=== PATIENT | male | born 1955 | race Caucasian/White ===

== ENCOUNTER 2017-10-26 13:42 | Outpatient (CLI) | payer BC, SELFPAY ==
--- NOTE | 2017-10-26 16:24 | HP ---
DATE OF SERVICE: 10/26/2017 HISTORY OF PRESENT ILLNESS: Mr. Abbe Miguel is a very pleasant 62-year-old gentleman who presents to the Wound Center for evaluation of an ulceration of the right lateral lower leg. The patient stat es that the ulceration of his right lateral lower leg has been present since July of this year. T he patient states that the wound began approximately 3 months ago when the patient hit his right late ral lower leg against the wooden corner of his bed. The patient states that he treated the resulting wound by cleansing followed by the application of Neosporin and Band-Aid. The patient states that d espite the preceding dressing changes, the wound became associated with an infectious process for [facility] he was seen by Dr. Sarkar. Mr. Miguel states that he was treated with 2 rounds of antibiotics. The patient states that he was referred to wound care in [place] where he received dressing changes 2 times per week. The patient states that his wound has been debrided after being seen by Wound Care in [place]. The patient states that for the past 2 weeks, he has been receiving dressing changes of Medihoney. The patient states that 2 weeks ago, he was referred to the Wound Center at [facility] for further evaluation and treatment. PAST MEDICAL HISTORY: 1. Diabetes mellitus. 2. Chronic obstructive pulmonary disease. 3. Hypothyroidism. 4. Gastroesophageal reflux disease. PAST SURGICAL HISTORY: 1. 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 2. Back surgery. 3. Multiple surgeries of the left foot by Dr. Mao Pierce. 4. Herniorrhaphy. 5. Bilateral cataract surgery. MEDICATIONS: 1. Advair. 2. Simvastatin. 3. Ezetimibe. 4. Protonix. 5. Losartan. 6. HCTZ. 7. Levothyroxine. 8. Singulair. 9. Humalog. ALLERGIES: No known diagnosed allergies. SOCIAL HISTORY: Significant for tobacco use for approximately 30 years. The patient states that ove r this period of time, he smoked up to 2 packs of cigarettes per day. The patient states that he sto pped smoking 15 years ago. The patient denies any history of ETOH use. FAMILY HISTORY: Significant for diabetes mellitus. The patient's father was diagnosed with diabetes mellitus. Family history is negative for coronary artery disease. PHYSICAL EXAMINATION: VITAL SIGNS: Temperature 98.2, pulse 97, respirations 19, blood pressure 155/74. Accu-Chek 101. GENERAL: A 62-year-old gentleman lying on table in examination room in no acute distress. HEENT: Normocephalic and atraumatic. NECK: No nuchal rigidity. CHEST: Clear to auscultation. CARDIAC: Regular rate and rhythm. ABDOMEN: Soft. EXTREMITIES: An ulceration of the right lateral lower leg is present which measures approximately 1. 0 x 1.3 cm. A small amount of granulation tissue is present within the wound margins. Necrotic and nonviable tissue present within the wound margins was debrided with an excisional full-thickness debr idement with the use of a curette. No purulent drainage is associated with the wound. No cellulitis of the right lower leg is appreciated. No maceration of the skin of the periwound is noted. A dors durga pedis pulse is palpable on the right. Edema of the right foot and lower leg is present on exam today. Varicosities are also present over the dorsum of the right foot. NEUROLOGIC: Grossly nonfocal. ASSESSMENT AND PLAN: 1. Varicose veins of right lower extremity with ulcer. Promogran, Silverlon, Webril, and the 3M Cob an 2-layer compression system will be applied to the ulceration today. No antibiotics will be prescr ibed based upon the appearance of the wound. Orders will be transmitted to physical therapy at [facility] for a dressing change of Promogran, Silverlon, Webril, and the 3M Coban 2 layer compression system in 1 week. I will see Mr. Miguel again in two weeks. The patient understands a nd is in agreement with the preceding treatment plan. 2. Diabetes mellitus. The patient's Accu-Chek in clinic today is 101. The patient has been told th at for optimal wound healing, his blood glucoses should remain below 150. 3. Chronic obstructive pulmonary disease. 4. Hypothyroidism. 5. Gastroesophageal reflux disease.
[2017-10-26] MEDS ORDERED: Sodium Chloride 0.9% 15 ML NEB ONE (18:54)
== END 2017-10-26 13:43 | disposition home or self-care (01) ==
LOC: WCC 13:42
PROVIDERS: ATTEND Family Medicine
DX: S81.801D Unspecified open wound, right lower leg, subsequent encounter (principal)
CPT/HCPCS: 11042; 99202; A4218; G0463

== ENCOUNTER 2017-11-09 09:38 | Outpatient (CLI) | payer BC ==
[~2017-11-09 09:38] MED LIST: Sodium Chloride 0.9% 15 ML NEB ONE
--- NOTE | 2017-11-09 10:50 | PRG ---
DATE OF SERVICE: 11/09/2017 HISTORY: Mr. Abbe Miguel is a very pleasant 62-year-old gentleman who presents to the Wound Center for evaluation of an ulceration of the right lateral lower leg. The patient previously stated that the ulceration of his right lateral lower leg has been present since July of this year. The patient stated that the wound began approximately 3 months ago when the patient hit his right latera l lower leg against the wooden corner of his bed. The patient stated that he treated the resulting w ound by cleansing followed by the application of Neosporin and a Band-Aid. The patient stated that d espite the preceding dressing changes, the wound became associated with an infectious process for whi ch he was seen by Dr. Sarkar. The patient stated that he was treated with 2 rounds of antibiotics. He stated that he was referred to wound care in [place] where he received dressing changes 2 times p er week. The patient stated that his wound had been debrided after being seen by Wound Care in [facility]. The patient stated that for 2 weeks prior to being seen in the Wound Center, he had been receivi ng dressing changes of Medihoney. When dressing changes of Medihoney were initiated, the patient was referred to the Wound Center for further evaluation and treatment. After being seen in the Wound Ce nter, Promogran, Silverlon, Webril, and the 3m Coban 2 layer compression system were applied to the u lceration of the right lateral lower leg. PHYSICAL EXAMINATION: VITAL SIGNS: Temperature 97.8, pulse 86, respirations 19, blood pressure 154/73. Accu-Chek 115. EXTREMITIES: An ulceration of the right lateral lower leg is present which measures approximately 1. 0 x 0.6 cm. Granulation tissue is present within the wound margins. Necrotic and nonviable tissue p resent within the wound margins was debrided with an excisional full-thickness debridement with the u se of scissors and a curette. No purulent drainage is associated with the wound. No cellulitis of t he right lower leg is appreciated. No maceration of the skin of the periwound is noted. A dorsalis pedis pulse is palpable on the right. No significant edema of the right foot or lower leg is present on exam today. Varicosities are present over the dorsum of the right foot. ASSESSMENT AND PLAN: 1. Varicose veins of right lower extremity with ulcer. Promogran, Silverlon, Webril, and the 3m Cob an 2-layer compression system will be applied to the ulceration today. Orders will be transmitted to [facility] in [place] for a dressing change of Promogran, Silverlon, Webril, and the 3m Coban 2 layer compression system in 1 week. I will see Mr. Miguel again in two weeks. 2. Diabetes mellitus. The patient's Accu-Chek in clinic today is 115. The patient has been reminde d that for optimal wound healing, his blood glucoses should remain below 150. 3. Chronic obstructive pulmonary disease. 4. Hypothyroidism. 5. Gastroesophageal reflux disease.
== END 2017-11-09 09:39 | disposition home or self-care (01) ==
LOC: WCC 09:38
PROVIDERS: ATTEND Family Medicine
DX: I83.018 Varicose veins of right lower extremity with ulcer other part of lower leg (principal); L97.819 Non-pressure chronic ulcer of other part of right lower leg with unspecified severity; E11.9 Type 2 diabetes mellitus without complications; J44.9 Chronic obstructive pulmonary disease, unspecified; E03.9 Hypothyroidism, unspecified; K21.9 Gastro-esophageal reflux disease without esophagitis
CPT/HCPCS: 11042; A4218

== ENCOUNTER 2017-11-23 09:55 | Outpatient (CLI) | payer BC ==
--- NOTE | 2017-11-23 11:02 | PRG ---
DATE OF SERVICE: 11/23/2017 HISTORY: Mr. Abbe Miguel is a very pleasant 62-year-old gentleman who presents to the Wound Center for evaluation of an ulceration of the right lateral lower leg. The patient previously stated that the ulceration of his right lateral lower leg had been present since July of this year. The patient stated that the wound began approximately 3 months prior to the patient's initial presentati on to the Wound Center when the patient hit his right lateral lower leg against a wooden corner of ct s bed. The patient stated that he treated the resulting wound by cleansing followed by the applicati on of Neosporin and a Band-Aid. The patient stated that despite the preceding dressing changes the w ound became associated with an infectious process for which he was seen by Dr. Sarkar. The patient stated that he was treated with 2 rounds of antibiotics. He stated that he was referred to wound car e in [place] where he received dressing changes 2 times per week. The patient stated that his wound had been debrided after being seen by Wound Care in [place]. The patient stated that for 2 weeks pavan or to being seen in the Wound Center, he had been receiving dressing changes of Medihoney. When dres sing changes of Medihoney were initiated the patient was referred to the Wound Center for further raul luation and treatment. After being seen in the Wound Center, Promogran, Silverlon, Webril, and the 3 M Coban 2 layer compression system were applied to the ulceration of the right lateral lower leg. PHYSICAL EXAMINATION: VITAL SIGNS: Temperature 98.0, pulse 86, respirations 18, blood pressure 147/67. Accu-Chek 65. EXTREMITIES: The ulceration over the right lateral lower leg has almost healed completely. No purul ent drainage is associated with the wound. No cellulitis of the right lower leg is appreciated. No maceration of the skin of the periwound is noted. A dorsalis pedis pulse is palpable on the right. Mild to moderate edema of the right foot and lower leg is present on exam today. Varicosities are pr esent over the dorsum of the right foot. ASSESSMENT AND PLAN: 1. Varicose veins of right lower extremity with ulcer. The patient has received dressing changes of the 3M Coban 2 layer compression system on a weekly basis here in the Wound Center, and at [facility] in [place]. The wound has almost healed completely, and dressing changes of [facility] are to be performed after cleansing and irrigation until the wound has healed completely. Mr. Miguel will be discharged from clinic today with followup on a p.r.n. basis. The patient states he has plans to be seen in consultation for evaluation for venous ablation. 2. Diabetes mellitus. The patient's Accu-Chek in clinic today is 65. The patient has been reminded that for optimal wound healing, his blood glucoses should remain below 150. 3. Chronic obstructive pulmonary disease. 4. Hypothyroidism. 5. Gastroesophageal reflux disease.
== END 2017-11-23 09:56 | disposition home or self-care (01) ==
LOC: WCC 09:55
PROVIDERS: ATTEND Family Medicine
DX: I83.018 Varicose veins of right lower extremity with ulcer other part of lower leg (principal); L97.919 Non-pressure chronic ulcer of unspecified part of right lower leg with unspecified severity; E11.622 Type 2 diabetes mellitus with other skin ulcer; J44.9 Chronic obstructive pulmonary disease, unspecified; E03.9 Hypothyroidism, unspecified; K21.9 Gastro-esophageal reflux disease without esophagitis
CPT/HCPCS: 97602

== ENCOUNTER 2019-04-13 10:23 | Outpatient (CLI) | payer MEDICARE, BC | END 2019-04-13 10:24 | disposition home or self-care (01) | LOC: CTENTCT 10:23 | PROVIDERS: ATTEND Specialist | DX: J33.9 Nasal polyp, unspecified (principal) | CPT/HCPCS: 70486 ==

== ENCOUNTER 2019-05-05 10:36 | Day surgery (SDC) | payer MEDICARE, BC ==
[2019-05-04 16:19] VITALS: BMI 33.9
[2019-05-05] MEDS ORDERED: Oxymetazoline HCl 0.05% ( 15 ML ) ONE ×2 (10:56→12:28)
[2019-05-05 11:05] LABS: Hemoglobin 14.6 g/dL (14.0-18.0)
[2019-05-05 11:27] LABS: Anion Gap 10 mmol/L (10-20); BUN (Urea Nitrogen) 15 mg/dL (8.4-25.7); Calc. Creatinine Clearance 95 mL/min (70-130); Calcium 9.3 mg/dL (7.8-10.44); Carbon Dioxide 29 mmol/L (23-31); Chloride 99 mmol/L (98-107); Estimated GFR-MDRD 59; Glucose 235 mg/dL (80-115); Potassium 4.4 mmol/L (3.5-5.1); Sodium 134 mmol/L (136-145)
[2019-05-05] MEDS ORDERED: Hydrocortisone Sod Succ/PF 100 mg/2 ml Vial ONE (12:03)
[2019-05-05] MEDS ORDERED: Lidocaine 1% w/Epinephrine 1:100K 20 ML VIAL ONE (12:28)
[2019-05-05] MEDS ORDERED: EPINEPHrine 1 MG/ML AMP ONE (12:28)
[2019-05-05] MEDS ORDERED: Ondansetron PF 4 MG/2 ML Vial ONE (12:29)
[2019-05-05] MEDS ORDERED: PROPOFOL 200 MG/20 ML VIAL ONE (12:29)
[2019-05-05] MEDS ORDERED: Lidocaine 1% PF 5 ML VIAL ONE (12:29)
[2019-05-05] MEDS ORDERED: Fentanyl 100 MCG/2 ML VIAL ONE (12:59)
[2019-05-05] MEDS ORDERED: HYDROcodone/Acetaminophen 5/325 mg Tablet ONE (16:21)
--- NOTE | 2019-05-06 11:29 | OP ---
DATE OF PROCEDURE: 05/05/2019 PREOPERATIVE DIAGNOSES: Nasal polyposis, hypertrophic inferior turbinates, deviated septum, chronic recurrent sinusitis. POSTOPERATIVE DIAGNOSES: Nasal polyposis, hypertrophic inferior turbinates, deviated septum, chronic recurrent sinusitis. PROCEDURES PERFORMED: 1. Septoplasty. 2. Bilateral nasal endoscopy with submucosal resection of inferior turbinates. 3. Bilateral nasal endoscopy with total ethmoidectomy. 4. Bilateral nasal endoscopy with maxillary antrostomy with removal of tissue. 5. Bilateral nasal endoscopy with frontal sinusotomy. 6. Bilateral nasal endoscopy with sphenoidotomy. 7. Bilateral nasal endoscopy with excision of nasal polyps. DESCRIPTION OF PROCEDURE: SEPTOPLASTY: After local anesthesia was infiltrated into the submucoperichondrial plane, a standard [place] incision was made with a #15 blade down to the level of the septal cartilage. The caudal elevator was used to elevate the mucoperichondrium from the underlying cartilage. We then proceeded beyond the bony cartilaginous junction and elevated the bony periosteum as well. Great attention was paid to the spur to prevent rent formation in the septal flap. A transcartilaginous incision was then made, while preserving an adequate dorsal and caudal cartilaginous strut for tip support. The deformed cartilage was removed and disarticulated from the bony cartilaginous junction and maxillary crest. This was placed in saline and would later be crushed and returned to the mucoperichondrial envelope. We then elevated the contralateral periosteum from the bony cartilaginous region and removed the deformed portions of the bone and bony spurs. The cartilage was then crushed and placed back into the mucoperichondrial envelope and the mucosa was re-approximated with a quilting stitch composed of rapidly absorbent gut suture. The [place] incision was also closed with interrupted gut suture. At the completion of the case, Sales splints were placed and suture secured to the caudal septum. BILATERAL NASAL ENDOSCOPY WITH SUBMUCOSAL RESECTION OF INFERIOR TURBINATES: After consent was obtained, the patient was identified, brought to the operating room, and placed on the operating room table in the supine position. Consent was obtained, notifying the patient of the possibility of additional infections, bleeding, brain injury, and eye/orbital injury. The patient was placed on the operating room table, and general endotracheal anesthesia and intravenous access was obtained. The patient was then positioned, prepped and draped for endoscopic sinus surgery. Nasal preparation included trimming nasal vestibular hairs and spraying in topical Afrin. We then placed Afrin topical solution on nasal pledgets and strategically located them intranasally. The perinasal mucosa was injected with 1% lidocaine with 1:100,000 epinephrine in the submucoperichondrial plane of the septum, lateral nasal wall, and anterior to the uncinate. The patient was then prepped and draped in a sterile fashion and positioned for endoscopic sinus surgery. With the 0-degree endoscope, the patient underwent systematic nasal endoscopy. There were no suspicious internasal masses or lesions identified. We then focused our attention to the osteomeatal complex region under the middle turbinate. The inferior turbinates were visualized with a 0 degree endoscope and outfractured with a Overgaard elevator. The inferior medial aspect was cauterized with the electrocautery. Hemostasis was obtained . After adequate airway was established, we turned our attention to the contralateral side and used a similar procedure. Again, a [place] elevator was used to outfracture inferior turbinates under endoscopic visualization. With a suction cautery, the free inferior medial aspect was cauterized under direct visualization along the length of the inferior turbinate. At this point, we then turned our attention to the contralateral side and proceeded with endoscopic sinus surgery. At the completion of the case, Rice keel splints were placed in the ethmoid cavities after the ethmoidectomy. There were no complications. The patient tolerated the procedure well and was discharged to the recovery room in stable condition prior to return to the preoperative day stay with ultimate discharge home. Prescriptions for pain medication and antibiotics were provided. The patient received intramuscular Depo-Medrol during the case. BILATERAL NASAL ENDOSCOPY WITH TOTAL ETHMOIDECTOMY: The anterior face of the ethmoid bulla was entered and with the micro-debrider, dissection continued posteriorly to the ground lamella. The limits of dissection included the insertion of the middle turbinate, medial orbital wall, and base of skull. We similarly identified the frontal recess and removed shrouds of bone and debris in that region to obtain patency into the agger nasi region and frontal recess. We then entered the ground lamella and its anteroinferior aspect and proceeded posteriorly, opening the posterior ethmoid air-cell system. Again, the limits of dissection included the base of skull and medial orbital wall. BILATERAL NASAL ENDOSCOPY WITH MAXILLARY ANTROSTOMY WITH REMOVAL OF TISSUE: The uncinate was then identified and the extent of the uncinate was appreciated by out-fracturing the uncinate with the ball-tip probe. We then used the sickle blade to disarticulate the uncinate from the lateral nasal wall. This was then removed with straight biting and upbiting punches with the remaining shrouds of mucosa and bony septum removed with the micro-debrider. The natural os of the maxillary sinus was then identified and enlarged with the maxillary punches and back biting forceps. BILATERAL NASAL ENDOSCOPY WITH FRONTAL SINUSOTOMY: Following the ethmoidectomy, we then turned our attention to the frontal nasal recess. The agger nasi cells were addressed and the frontal recess was exposed. The natural opening to the frontal sinus was identified. At this point, any obstructing shrouds of mucosa and bony fragments were removed with a curved microdebrider. The wound was then examined and found to be free of any obstructing debris. We then turned our attention to the contralateral side and performed a similar procedure again under endoscopic visualization using a 45-degree scope. We were able to visualize the frontal recess. Obstructing shrouds of mucosa and bone were removed with a microdebrider. The natural os of frontal sinus was identified and enlarged and irrigated. At this point, the frontal sinusotomy was completed and we turned to the next area of concern. BILATERAL NASAL ENDOSCOPY WITH SPHENOIDOTOMY: The anterior face of the sphenoid was identified and entered in its extreme anteroinferior aspect. A sphenoid punch was then used to enlarge the sphenoidotomy and no injury to the optic nerve or internal carotid artery occurred. BILATERAL NASAL ENDOSCOPY WITH EXCISION OF NASAL POLYPS: Under endoscopic visualization, the nasal cavity was systematically examined and encountered large inflammatory polyps. These polyps were infiltrated 1% lidocaine with 1:100,000 epinephrine. The polyps were then addressed using the [employer] shaver. Then, the polyps were removed with care not to injure the surrounding normal mucosa. Samples of polyps were taken and sent for histologic evaluation. Bleeding was then controlled. Job ID: [id number]
--- NOTE | 2019-05-09 23:01 | EKG ---
Test Reason : PREOP Blood Pressure : / mmHG Vent. Rate : 079 BPM Atrial Rate : 079 BPM P-R Int : 134 ms QRS Dur : 090 ms QT Int : 354 ms P-R-T Axes : 075 066 054 degrees QTc Int : 405 ms Normal sinus rhythm Premature atrial complexes Normal ECG No previous ECGs available Confirmed by SHERICE LOWERY M.D. ([id number] on 05/09/2019 11:00:59 PM Referred By: JIN Confirmed By:SHERICE LOWERY M.D.
== END 2019-05-05 17:05 | disposition home or self-care (01) ==
LOC: SDC 10:36
PROVIDERS: ATTEND Specialist
PROC: 09SM0ZZ Reposition Nasal Septum, Open Approach (ICD-10-PCS; principal; 2019-05-05)
PROC: 09SL8ZZ Reposition Nasal Turbinate, Via Natural or Artificial Opening Endoscopic (ICD-10-PCS; 2019-05-05)
PROC: 099T8ZZ Drainage of Left Frontal Sinus, Via Natural or Artificial Opening Endoscopic (ICD-10-PCS; 2019-05-05)
PROC: 099W8ZZ Drainage of Right Sphenoid Sinus, Via Natural or Artificial Opening Endoscopic (ICD-10-PCS; 2019-05-05)
PROC: 099X8ZZ Drainage of Left Sphenoid Sinus, Via Natural or Artificial Opening Endoscopic (ICD-10-PCS; 2019-05-05)
PROC: 099S8ZZ Drainage of Right Frontal Sinus, Via Natural or Artificial Opening Endoscopic (ICD-10-PCS; 2019-05-05)
PROC: 09BR8ZZ Excision of Left Maxillary Sinus, Via Natural or Artificial Opening Endoscopic (ICD-10-PCS; 2019-05-05)
PROC: 09BQ8ZZ Excision of Right Maxillary Sinus, Via Natural or Artificial Opening Endoscopic (ICD-10-PCS; 2019-05-05)
PROC: 09TV8ZZ Resection of Left Ethmoid Sinus, Via Natural or Artificial Opening Endoscopic (ICD-10-PCS; 2019-05-05)
PROC: 09TU8ZZ Resection of Right Ethmoid Sinus, Via Natural or Artificial Opening Endoscopic (ICD-10-PCS; 2019-05-05)
DX: J32.4 Chronic pansinusitis (principal); J34.2 Deviated nasal septum; J34.3 Hypertrophy of nasal turbinates; J31.0 Chronic rhinitis; J33.9 Nasal polyp, unspecified; I10 Essential (primary) hypertension; E78.5 Hyperlipidemia, unspecified; J44.9 Chronic obstructive pulmonary disease, unspecified; G61.0 Guillain-Barre syndrome; E03.9 Hypothyroidism, unspecified; E10.9 Type 1 diabetes mellitus without complications; E66.9 Obesity, unspecified; Z68.33 Body mass index [BMI] 33.0-33.9, adult; Z87.891 Personal history of nicotine dependence; Z79.52 Long term (current) use of systemic steroids; Z79.899 Other long term (current) drug therapy; Z99.89 Dependence on other enabling machines and devices; Z96.41 Presence of insulin pump (external) (internal)
CPT/HCPCS: 36415; 36416; 80048; 85014; 85018; 93005; 93010; J0171; J1720; J2001; J2405; J2704; J3010